=== PATIENT | male | born 1995 | race Caucasian/White ===

== ENCOUNTER 2020-11-25 19:11 | Emergency (ER) | payer SELFPAY ==
[~2020-11-25] VITALS: Ht 182.9 cm; Wt 100.0 kg
[2020-11-25 22:07] VITALS: BP 166/103
[2020-11-25] MEDS ORDERED: NALO4SPR BOTHNSTRLS (22:42)
== END 2020-11-25 22:51 | disposition home or self-care (01) ==
LOC: ER 19:11
DX: F15.10 Other stimulant abuse, uncomplicated (principal); R44.1 Visual hallucinations; F17.290 Nicotine dependence, other tobacco product, uncomplicated; F12.10 Cannabis abuse, uncomplicated; J45.909 Unspecified asthma, uncomplicated
CPT/HCPCS: 99283

== ENCOUNTER 2021-02-26 23:23 | Emergency (ER) | payer MEDICAID ==
[~2021-02-26] VITALS: Ht 177.8 cm; Wt 78.0 kg
[~2021-02-26 23:23] MED LIST: NALO4SPR BOTHNSTRLS
[2021-02-27] MEDS ORDERED: LORAZEPAM 1MG TABLET PO ONE (01:45)
[2021-02-27 05:11] VITALS: BP 130/98
== END 2021-02-27 05:29 | disposition home or self-care (01) ==
LOC: ER 23:39
DX: T43.621A Poisoning by amphetamines, accidental (unintentional), initial encounter (principal); F15.180 Other stimulant abuse with stimulant-induced anxiety disorder; R00.2 Palpitations; Y92.89 Other specified places as the place of occurrence of the external cause; J45.909 Unspecified asthma, uncomplicated; F12.90 Cannabis use, unspecified, uncomplicated
CPT/HCPCS: 93005; 99283